=== PATIENT | male | born 1955 | race Caucasian/White ===

== ENCOUNTER 2017-10-05 13:23 | Inpatient (IN) | payer BC ==
[~2017-10-05] VITALS: Ht 193 cm; Wt 102.5 kg
[~2017-10-05 13:23] MED LIST: KEFLEX500 MG PO
[2017-10-05 14:41] LABS: APPEARANCE SL.HAZY ((CLEAR)); BILIRUBIN NEGATIVE; BLOOD NEGATIVE; COLOR AMBER ((YELLOW)); GLUCOSE (STRIP) NEGATIVE; KETONES 20; LEUKOCYTES TRACE; NITRITE NEGATIVE; PROTEIN (STRIP) 30; SPECIFIC GRAVITY 1.021 (1.000-1.030)
[2017-10-05 14:48] LABS: HEMATOCRIT 42.2 % (38.0-50.0); HEMOGLOBIN 14.9 G/DL (12.5-16.6); MCH 31.8 PG (29.0-34.0); MCHC 35.3 G/DL (30.0-36.0); MCV 90.2 FL (86-99); PLATELET COUNT 414 K/uL (156-360); RBC DIS.WIDTH-CV 11.5 % (11.8-14.6); RBC DIS.WIDTH-SD 37.9 % (39-53); RED BLOOD COUNT 4.68 M/uL (4.00-5.50); WHITE BLOOD COUNT 16.8 K/uL (4.1-10.2)
[2017-10-05 14:55] LABS: BACTERIA RARE /HPF; EPITHELIAL CELLS NONE SEEN /HPF; HYALINE CASTS 20-30 /LPF; MUCUS NONE SEEN /LPF; RED BLOOD CELLS 0-5 /HPF (0-5); UCUL ADDED? NO; WHITE BLOOD CELLS 0-5 /HPF (0-5)
[2017-10-05 14:57] LABS: ALBUMIN 4.2 g/dL (3.2-4.8)
[2017-10-05 14:58] LABS: CHLORIDE 82 mEq/L (99-109); POTASSIUM 3.9 mEq/L (3.7-5.4); SODIUM 131 mEq/L (136-147)
[2017-10-05 15:00] LABS: GLUCOSE 128 mg/dL (70-99); TOTAL PROTEIN 7.8 g/dL (6.4-8.3)
[2017-10-05 15:02] LABS: TOTAL BILIRUBIN 0.8 mg/dL (0.0-1.0)
[2017-10-05 15:03] LABS: ALKALINE PHOSPHATASE 80 IU/L (3-129)
[2017-10-05 15:04] LABS: CREATININE 1.7 mg/dL (0.6-1.3); GFR ESTIMATE (CALCULATED) 43 mL/min/ (58.99-99999)
[2017-10-05 15:05] LABS: AST (GOT) 27 IU/L (2-34); UREA NITROGEN (BUN) 38 mg/dL (9-23)
[2017-10-05 15:07] LABS: ALT (GPT) 29 IU/L (3-49)
[2017-10-05] MEDS ORDERED: MULTI-VITAMIN1 EAC4 PO (18:23)
[2017-10-05] MEDS ORDERED: VITAMIN C1000 MG PO (18:24)
[2017-10-05] MEDS ORDERED: MAGNESIUM OXID500 MG PO (18:25)
[2017-10-05] MEDS ORDERED: POTASSIUM-9999 MG PO (18:25)
[2017-10-05] MEDS ORDERED: VITAMIN D-3 401 EACH PO (18:25)
[2017-10-05] MEDS ORDERED: FISH OIL 1,0001 EAC7 PO (18:26)
[2017-10-05] MEDS ORDERED: ALEVE220 MG PO (18:27)
[2017-10-05 22:55] LABS: CARBON DIOXIDE (BICARBONATE) 38.4 MEQ/L (20-31)
[2017-10-05 23:17] LABS: C-REACTIVE PROTEIN 196.5 MG/L (0-10); MAGNESIUM 2.4 mg/dl (1.3-2.7); PHOSPHORUS 3.6 mg/dL (2.5-4.9)
[2017-10-06 01:12] VITALS: BP 146/83
[2017-10-06 08:04] VITALS: BP 135/76
[2017-10-06 08:04] LABS: BASOPHIL (%) 0.3 % (0-1); EOSINOPHIL (%) 1.9 % (0-5); EOSINOPHIL COUNT 0.2 K/uL (0-0.3); HEMATOCRIT 36.6 % (38.0-50.0); IMMATURE GRANULOCYTE (%) 0.7 % (0.0-0.7); LYMPHOCYTE (%) 11.4 % (15-42); MCH 30.9 PG (29.0-34.0); MCHC 34.2 G/DL (30.0-36.0); MCV 90.6 FL (86-99); MONOCYTE (%) 6.2 % (3-12); MONOCYTE COUNT 0.6 K/uL (0-0.8); NEUTROPHIL (%) 79.5 % (45-76); PLATELET COUNT 368 K/uL (156-360); RBC DIS.WIDTH-CV 11.7 % (11.8-14.6); RBC DIS.WIDTH-SD 39.3 % (39-53); RED BLOOD COUNT 4.04 M/uL (4.00-5.50); WHITE BLOOD COUNT 8.9 K/uL (4.1-10.2)
[2017-10-06 08:15] LABS: PROLACTIN 23.2 NG/ML
[2017-10-06 08:29] LABS: HEMOGLOBIN 12.5 G/DL (12.5-16.6)
[2017-10-06 08:37] LABS: ALBUMIN 3.2 G/DL (3.2-4.8); ALKALINE PHOSPHATASE 62 IU/L (3-129); ALT (GPT) 17 IU/L (3-49); AST (GOT) 17 IU/L (2-34); CHLORIDE 86 MEQ/L (99-109); CREATININE 1.4 MG/DL (0.6-1.3); GFR ESTIMATE (CALCULATED) 54 mL/min/ (58.99-99999); MAGNESIUM 2.4 mg/dl (1.3-2.7); PHOSPHORUS 3.5 mg/dL (2.5-4.9); POTASSIUM 3.5 MEQ/L (3.7-5.4); SODIUM 134 MEQ/L (136-147); TOTAL BILIRUBIN 0.6 MG/DL (0.0-1.0); TOTAL PROTEIN 5.7 G/DL (6.4-8.3); UREA NITROGEN (BUN) 36 mg/dL (9-23)
[2017-10-06 08:43] LABS: GLUCOSE 88 mg/dL (70-99)
[2017-10-06 12:19] VITALS: BP 147/68
[2017-10-06 16:04] VITALS: BP 143/73
[2017-10-06 19:57] VITALS: BP 135/71
[2017-10-07] VITALS (7 sets, daily range): BP systolic 115–161; BP diastolic 67–79
[2017-10-07 05:31] LABS: HEMATOCRIT 34.3 % (38.0-50.0); HEMOGLOBIN 11.8 G/DL (12.5-16.6); MCH 32.1 PG (29.0-34.0); MCHC 34.4 G/DL (30.0-36.0); MCV 93.2 FL (86-99); PLATELET COUNT 311 K/uL (156-360); RBC DIS.WIDTH-CV 11.8 % (11.8-14.6); RBC DIS.WIDTH-SD 40.2 % (39-53); RED BLOOD COUNT 3.68 M/uL (4.00-5.50); WHITE BLOOD COUNT 9.3 K/uL (4.1-10.2)
[2017-10-07 05:55] LABS: CHLORIDE 90 MEQ/L (99-109); CREATININE 1.2 MG/DL (0.6-1.3); GFR ESTIMATE (CALCULATED) > 59 mL/min/ (58.99-99999); GLUCOSE 76 mg/dL (70-99); MAGNESIUM 2.3 mg/dl (1.3-2.7); PHOSPHORUS 2.9 mg/dL (2.5-4.9); POTASSIUM 2.9 MEQ/L (3.7-5.4); SODIUM 137 MEQ/L (136-147); UREA NITROGEN (BUN) 19 mg/dL (9-23)
[2017-10-08 03:50] VITALS: BP 119/73
[2017-10-08 06:12] LABS: HEMATOCRIT 34.2 % (38.0-50.0); HEMOGLOBIN 11.7 G/DL (12.5-16.6); MCH 32.4 PG (29.0-34.0); MCHC 34.2 G/DL (30.0-36.0); MCV 94.7 FL (86-99); PLATELET COUNT 334 K/uL (156-360); RBC DIS.WIDTH-CV 11.9 % (11.8-14.6); RBC DIS.WIDTH-SD 41.1 % (39-53); RED BLOOD COUNT 3.61 M/uL (4.00-5.50); WHITE BLOOD COUNT 9.2 K/uL (4.1-10.2)
[2017-10-08 06:42] LABS: CHLORIDE 96 MEQ/L (99-109); GFR ESTIMATE (CALCULATED) > 59 mL/min/ (58.99-99999); GLUCOSE 69 mg/dL (70-99); SODIUM 141 MEQ/L (136-147); UREA NITROGEN (BUN) 13 mg/dL (9-23)
[2017-10-08 06:43] LABS: POTASSIUM 3.6 MEQ/L (3.7-5.4)
[2017-10-08 08:30] VITALS: BP 113/82
[2017-10-08 11:19] VITALS: BP 126/74
[2017-10-08 15:30] VITALS: BP 117/80
[2017-10-08 20:31] VITALS: BP 140/82
[2017-10-09 00:11] VITALS: BP 125/78
[2017-10-09 05:16] VITALS: BP 123/71
[2017-10-09 07:38] LABS: CHLORIDE 101 MEQ/L (99-109); GFR ESTIMATE (CALCULATED) > 59 mL/min/ (58.99-99999); GLUCOSE 73 mg/dL (70-99); SODIUM 142 MEQ/L (136-147); UREA NITROGEN (BUN) 12 mg/dL (9-23)
[2017-10-09 07:41] LABS: POTASSIUM 4.4 MEQ/L (3.7-5.4)
[2017-10-09 11:24] VITALS: BP 124/71
[2017-10-09 17:33] VITALS: BP 136/85
[2017-10-09 20:05] VITALS: BP 139/81
[2017-10-10 00:27] VITALS: BP 148/81
[2017-10-10 03:10] VITALS: BP 120/72
[2017-10-10 07:55] LABS: CHLORIDE 103 MEQ/L (99-109); CREATININE 0.9 MG/DL (0.6-1.3); GFR ESTIMATE (CALCULATED) > 59 mL/min/ (58.99-99999); POTASSIUM 4.1 MEQ/L (3.7-5.4); SODIUM 142 MEQ/L (136-147); UREA NITROGEN (BUN) 9 mg/dL (9-23)
[2017-10-10 07:56] LABS: GLUCOSE 119 mg/dL (70-99)
[2017-10-10 08:30] VITALS: BP 116/63
[2017-10-10 12:49] VITALS: BP 125/72
[2017-10-10 16:30] VITALS: BP 130/72
[2017-10-10 20:44] VITALS: BP 128/81
[2017-10-11 00:14] VITALS: BP 153/86
[2017-10-11 05:17] VITALS: BP 120/72
[2017-10-11 09:16] VITALS: BP 119/70
[2017-10-11 16:04] VITALS: BP 125/80
[2017-10-12 00:20] VITALS: BP 123/83
[2017-10-12 07:47] LABS: BASOPHIL (%) 0.6 % (0-1); BASOPHIL COUNT 0.1 K/uL (0-0.1); EOSINOPHIL (%) 2.2 % (0-5); EOSINOPHIL COUNT 0.2 K/uL (0-0.3); HEMATOCRIT 36.1 % (38.0-50.0); HEMOGLOBIN 11.9 G/DL (12.5-16.6); IMMATURE GRANULOCYTE (%) 0.4 % (0.0-0.7); LYMPHOCYTE (%) 12.8 % (15-42); LYMPHOCYTE COUNT 1.1 K/uL (1.0-2.8); MCH 31.9 PG (29.0-34.0); MCV 96.8 FL (86-99); MONOCYTE (%) 8.7 % (3-12); MONOCYTE COUNT 0.7 K/uL (0-0.8); NEUTROPHIL (%) 75.3 % (45-76); NEUTROPHIL COUNT 6.2 K/uL (1.8-6.4); PLATELET COUNT 269 K/uL (156-360); RBC DIS.WIDTH-CV 12.2 % (11.8-14.6); RBC DIS.WIDTH-SD 43.2 % (39-53); RED BLOOD COUNT 3.73 M/uL (4.00-5.50); WHITE BLOOD COUNT 8.2 K/uL (4.1-10.2)
[2017-10-12 08:15] LABS: ALBUMIN 2.7 G/DL (3.2-4.8); ALKALINE PHOSPHATASE 43 IU/L (3-129); ALKALINE PHOSPHATASE 44 IU/L (3-129); ALT (GPT) 24 IU/L (3-49); AST (GOT) 36 IU/L (2-34); CHLORIDE 103 MEQ/L (99-109); CREATININE 1.2 MG/DL (0.6-1.3); DIRECT BILIRUBIN 0.1 mg/dL (0.0-0.3); GFR ESTIMATE (CALCULATED) > 59 mL/min/ (58.99-99999); GLUCOSE 121 mg/dL (70-99); MAGNESIUM 1.8 mg/dl (1.3-2.7); POTASSIUM 4.4 MEQ/L (3.7-5.4); PREALBUMIN 15.1 mg/dL (10-40); SODIUM 143 MEQ/L (136-147); TOTAL BILIRUBIN 0.4 MG/DL (0.0-1.0); TOTAL PROTEIN 4.9 G/DL (6.4-8.3); TRIGLYCERIDES 55 MG/DL (Normal: <150); UREA NITROGEN (BUN) 5 mg/dL (9-23)
[2017-10-12 08:17] LABS: AST (GOT) 35 IU/L (2-34); TOTAL BILIRUBIN 0.4 MG/DL (0.0-1.0)
[2017-10-12 08:32] VITALS: BP 128/73
[2017-10-12 11:40] VITALS: BP 112/66
[2017-10-12 20:18] VITALS: BP 112/73
[2017-10-13] VITALS (7 sets, daily range): BP systolic 118–133; BP diastolic 73–83
[2017-10-13 06:17] LABS: CHLORIDE 105 MEQ/L (99-109); POTASSIUM 4.1 MEQ/L (3.7-5.4); SODIUM 143 MEQ/L (136-147)
[2017-10-13 06:23] LABS: CREATININE 1.2 MG/DL (0.6-1.3); GFR ESTIMATE (CALCULATED) > 59 mL/min/ (58.99-99999); GLUCOSE 108 mg/dL (70-99); UREA NITROGEN (BUN) 7 mg/dL (9-23)
[2017-10-14 05:39] LABS: CHLORIDE 108 MEQ/L (99-109); GFR ESTIMATE (CALCULATED) > 59 mL/min/ (58.99-99999); GLUCOSE 105 mg/dL (70-99); MAGNESIUM 2.2 mg/dl (1.3-2.7); PHOSPHORUS 3.5 mg/dL (2.5-4.9); POTASSIUM 4.5 MEQ/L (3.7-5.4); SODIUM 143 MEQ/L (136-147); UREA NITROGEN (BUN) 14 mg/dL (9-23)
[2017-10-14 08:25] VITALS: BP 118/82
[2017-10-14 15:23] VITALS: BP 141/83
[2017-10-14 19:51] VITALS: BP 144/89
[2017-10-15 00:16] VITALS: BP 141/85
[2017-10-15 04:02] VITALS: BP 124/60
[2017-10-15 06:23] LABS: CHLORIDE 108 MEQ/L (99-109); CREATININE 0.9 MG/DL (0.6-1.3); GFR ESTIMATE (CALCULATED) > 59 mL/min/ (58.99-99999); GLUCOSE 107 mg/dL (70-99); MAGNESIUM 2.2 mg/dl (1.3-2.7); PHOSPHORUS 4.3 mg/dL (2.5-4.9); POTASSIUM 4.6 MEQ/L (3.7-5.4); SODIUM 144 MEQ/L (136-147); UREA NITROGEN (BUN) 16 mg/dL (9-23)
[2017-10-15 07:54] VITALS: BP 122/75
[2017-10-15 11:29] VITALS: BP 118/75
[2017-10-15 13:46] VITALS: BP 149/85
[2017-10-15 20:45] VITALS: BP 162/84
[2017-10-16 00:09] VITALS: BP 142/78
[2017-10-16 03:28] VITALS: BP 123/64
[2017-10-16 05:33] LABS: HEMATOCRIT 33.6 % (38.0-50.0); HEMOGLOBIN 10.8 G/DL (12.5-16.6); MCH 30.9 PG (29.0-34.0); MCHC 32.1 G/DL (30.0-36.0); MCV 96.3 FL (86-99); PLATELET COUNT 275 K/uL (156-360); RBC DIS.WIDTH-CV 12.2 % (11.8-14.6); RBC DIS.WIDTH-SD 42.4 % (39-53); RED BLOOD COUNT 3.49 M/uL (4.00-5.50); WHITE BLOOD COUNT 9.4 K/uL (4.1-10.2)
[2017-10-16 06:55] LABS: CHLORIDE 108 MEQ/L (99-109); CREATININE 0.9 MG/DL (0.6-1.3); GFR ESTIMATE (CALCULATED) > 59 mL/min/ (58.99-99999); GLUCOSE 132 mg/dL (70-99); MAGNESIUM 1.9 mg/dl (1.3-2.7); PHOSPHORUS 3.6 mg/dL (2.5-4.9); POTASSIUM 5.2 MEQ/L (3.7-5.4); UREA NITROGEN (BUN) 18 mg/dL (9-23)
[2017-10-16 06:58] LABS: SODIUM 136 MEQ/L (136-147)
[2017-10-16 08:00] VITALS: BP 133/73
[2017-10-16 11:06] VITALS: BP 124/68
[2017-10-16 15:29] VITALS: BP 134/75
[2017-10-16 21:01] VITALS: BP 135/72
[2017-10-17 00:21] VITALS: BP 143/82
[2017-10-17 06:33] VITALS: BP 133/76
[2017-10-17 06:49] LABS: CHLORIDE 109 MEQ/L (99-109); GFR ESTIMATE (CALCULATED) > 59 mL/min/ (58.99-99999); GLUCOSE 104 mg/dL (70-99); MAGNESIUM 1.9 mg/dl (1.3-2.7); PHOSPHORUS 3.2 mg/dL (2.5-4.9); SODIUM 140 MEQ/L (136-147); UREA NITROGEN (BUN) 21 mg/dL (9-23)
[2017-10-17 06:51] LABS: POTASSIUM 4.1 MEQ/L (3.7-5.4)
[2017-10-17 08:00] VITALS: BP 136/80
[2017-10-17 11:37] VITALS: BP 138/88
[2017-10-17 16:02] VITALS: BP 140/85
[2017-10-17 20:03] VITALS: BP 164/94
[2017-10-18 00:12] VITALS: BP 129/76
[2017-10-18 05:52] LABS: BASOPHIL (%) 0.7 % (0-1); BASOPHIL COUNT 0.1 K/uL (0-0.1); EOSINOPHIL (%) 3.7 % (0-5); EOSINOPHIL COUNT 0.3 K/uL (0-0.3); HEMATOCRIT 32.3 % (38.0-50.0); HEMOGLOBIN 10.5 G/DL (12.5-16.6); IMMATURE GRANULOCYTE (%) 0.6 % (0.0-0.7); LYMPHOCYTE (%) 9.6 % (15-42); LYMPHOCYTE COUNT 0.7 K/uL (1.0-2.8); MCH 31.7 PG (29.0-34.0); MCHC 32.5 G/DL (30.0-36.0); MCV 97.6 FL (86-99); MONOCYTE (%) 8.3 % (3-12); MONOCYTE COUNT 0.6 K/uL (0-0.8); NEUTROPHIL (%) 77.1 % (45-76); NEUTROPHIL COUNT 5.5 K/uL (1.8-6.4); PLATELET COUNT 282 K/uL (156-360); RBC DIS.WIDTH-CV 12.6 % (11.8-14.6); RBC DIS.WIDTH-SD 44.6 % (39-53); RED BLOOD COUNT 3.31 M/uL (4.00-5.50); WHITE BLOOD COUNT 7.1 K/uL (4.1-10.2)
[2017-10-18 06:12] VITALS: BP 161/78
[2017-10-18 07:15] LABS: ALBUMIN 2.6 G/DL (3.2-4.8); ALKALINE PHOSPHATASE 59 IU/L (3-129); ALT (GPT) 21 IU/L (3-49); AST (GOT) 32 IU/L (2-34); CHLORIDE 108 MEQ/L (99-109); CREATININE 0.9 MG/DL (0.6-1.3); DIRECT BILIRUBIN 0.1 mg/dL (0.0-0.3); GFR ESTIMATE (CALCULATED) > 59 mL/min/ (58.99-99999); GLUCOSE 96 mg/dL (70-99); PHOSPHORUS 4.3 mg/dL (2.5-4.9); POTASSIUM 4.9 MEQ/L (3.7-5.4); PREALBUMIN 11.6 mg/dL (10-40); SODIUM 142 MEQ/L (136-147); TOTAL BILIRUBIN 0.4 MG/DL (0.0-1.0); TRIGLYCERIDES 77 MG/DL (Normal: <150); UREA NITROGEN (BUN) 20 mg/dL (9-23)
[2017-10-18 07:25] VITALS: BP 160/86
[2017-10-18 11:20] VITALS: BP 139/85
[2017-10-18 15:58] VITALS: BP 165/87
[2017-10-18 23:39] VITALS: BP 135/84
[2017-10-19 03:49] VITALS: BP 139/75; BP 139/755
[2017-10-19 05:10] LABS: HEMATOCRIT 29.8 % (38.0-50.0); HEMOGLOBIN 9.8 G/DL (12.5-16.6); MCH 31.8 PG (29.0-34.0); MCHC 32.9 G/DL (30.0-36.0); MCV 96.8 FL (86-99); PLATELET COUNT 299 K/uL (156-360); RBC DIS.WIDTH-CV 12.7 % (11.8-14.6); RBC DIS.WIDTH-SD 44.3 % (39-53); RED BLOOD COUNT 3.08 M/uL (4.00-5.50); WHITE BLOOD COUNT 5.8 K/uL (4.1-10.2)
[2017-10-19 06:10] LABS: CHLORIDE 106 MEQ/L (99-109); GFR ESTIMATE (CALCULATED) > 59 mL/min/ (58.99-99999); GLUCOSE 110 mg/dL (70-99); SODIUM 142 MEQ/L (136-147); UREA NITROGEN (BUN) 23 mg/dL (9-23)
[2017-10-19 06:17] LABS: POTASSIUM 3.6 MEQ/L (3.7-5.4)
[2017-10-19 07:53] VITALS: BP 134/71
[2017-10-19 10:47] VITALS: BP 153/83
[2017-10-19 13:00] LABS: 24 HR VOLUME 700 MLS
[2017-10-19 15:48] VITALS: BP 155/89
[2017-10-19 20:42] VITALS: BP 132/72
[2017-10-19 23:28] VITALS: BP 127/77
[2017-10-20 03:44] VITALS: BP 130/80
[2017-10-20 07:34] LABS: CHLORIDE 111 MEQ/L (99-109); CREATININE 0.9 MG/DL (0.6-1.3); GFR ESTIMATE (CALCULATED) > 59 mL/min/ (58.99-99999); GLUCOSE 102 mg/dL (70-99); MAGNESIUM 2.1 mg/dl (1.3-2.7); PHOSPHORUS 3.6 mg/dL (2.5-4.9); SODIUM 145 MEQ/L (136-147); UREA NITROGEN (BUN) 23 mg/dL (9-23)
[2017-10-20 07:40] VITALS: BP 128/74
[2017-10-20 11:39] VITALS: BP 137/74
[2017-10-20 15:09] VITALS: BP 142/76
[2017-10-20 19:28] VITALS: BP 161/81
[2017-10-20 23:08] VITALS: BP 123/64
[2017-10-21 03:44] VITALS: BP 131/63
[2017-10-21 06:25] LABS: CHLORIDE 115 MEQ/L (99-109); CREATININE 0.9 MG/DL (0.6-1.3); GFR ESTIMATE (CALCULATED) > 59 mL/min/ (58.99-99999); GLUCOSE 104 mg/dL (70-99); PHOSPHORUS 3.8 mg/dL (2.5-4.9); POTASSIUM 3.7 MEQ/L (3.7-5.4); SODIUM 145 MEQ/L (136-147); UREA NITROGEN (BUN) 22 mg/dL (9-23)
[2017-10-21 07:49] VITALS: BP 115/68
[2017-10-21 11:43] VITALS: BP 144/81
[2017-10-21 16:01] VITALS: BP 156/83
[2017-10-21 20:27] VITALS: BP 147/78
[2017-10-22 00:27] VITALS: BP 147/76
[2017-10-22 04:18] VITALS: BP 151/79
[2017-10-22 05:59] LABS: CHLORIDE 109 MEQ/L (99-109); CREATININE 0.7 MG/DL (0.6-1.3); GFR ESTIMATE (CALCULATED) > 59 mL/min/ (58.99-99999); GLUCOSE 98 mg/dL (70-99); MAGNESIUM 1.8 mg/dl (1.3-2.7); PHOSPHORUS 3.8 mg/dL (2.5-4.9); POTASSIUM 3.9 MEQ/L (3.7-5.4); SODIUM 141 MEQ/L (136-147); UREA NITROGEN (BUN) 20 mg/dL (9-23)
[2017-10-22 08:06] VITALS: BP 146/75
[2017-10-22 16:06] VITALS: BP 138/70
[2017-10-22 23:56] VITALS: BP 143/80
[2017-10-23 06:40] LABS: HEMATOCRIT 29.8 % (38.0-50.0); HEMOGLOBIN 9.7 G/DL (12.5-16.6); MCH 31.3 PG (29.0-34.0); MCHC 32.6 G/DL (30.0-36.0); MCV 96.1 FL (86-99); PLATELET COUNT 326 K/uL (156-360); RBC DIS.WIDTH-CV 12.3 % (11.8-14.6); RBC DIS.WIDTH-SD 42.7 % (39-53); WHITE BLOOD COUNT 4.6 K/uL (4.1-10.2)
[2017-10-23 07:05] LABS: CHLORIDE 106 MEQ/L (99-109); CREATININE 0.7 MG/DL (0.6-1.3); GFR ESTIMATE (CALCULATED) > 59 mL/min/ (58.99-99999); GLUCOSE 100 mg/dL (70-99); MAGNESIUM 1.9 mg/dl (1.3-2.7); POTASSIUM 4.4 MEQ/L (3.7-5.4); SODIUM 141 MEQ/L (136-147); UREA NITROGEN (BUN) 17 mg/dL (9-23)
[2017-10-23 08:38] VITALS: BP 141/82
[2017-10-23 17:15] VITALS: BP 142/82
[2017-10-24 00:04] VITALS: BP 113/61
[2017-10-24 06:47] LABS: CHLORIDE 101 MEQ/L (99-109); CREATININE 0.9 MG/DL (0.6-1.3); GFR ESTIMATE (CALCULATED) > 59 mL/min/ (58.99-99999); GLUCOSE 98 mg/dL (70-99); MAGNESIUM 1.9 mg/dl (1.3-2.7); PHOSPHORUS 3.8 mg/dL (2.5-4.9); POTASSIUM 4.7 MEQ/L (3.7-5.4); SODIUM 137 MEQ/L (136-147); UREA NITROGEN (BUN) 20 mg/dL (9-23)
[2017-10-24 08:09] VITALS: BP 135/82
[2017-10-24 11:13] VITALS: BP 123/68
[2017-10-24] MEDS ORDERED: NORCO 5/3251 TABLET PO (14:24)
== END 2017-10-24 16:12 | disposition home or self-care (01) | DRG 330 ==
LOC: EME 13:23 → 3EAST 23:13 → EDOF 23:13 → ENRESERV 23:18 → 3EAST 10-06 01:03
PROVIDERS: Hospitalist; Physician Assistant; Physician Assistant Medical; Thoracic Surgery (Cardiothoracic Vascular Surgery)
PROC: 02HV33Z Insertion of Infusion Device into Superior Vena Cava, Percutaneous Approach (ICD-10-PCS; 2017-10-05)
PROC: 0D9670Z Drainage of Stomach with Drainage Device, Via Natural or Artificial Opening (ICD-10-PCS; 2017-10-05)
PROC: 3E0336Z Introduction of Nutritional Substance into Peripheral Vein, Percutaneous Approach (ICD-10-PCS; principal; 2017-10-12)
PROC: 0DB80ZZ Excision of Small Intestine, Open Approach (ICD-10-PCS; 2017-10-17)
DX: K56.609 Unspecified intestinal obstruction, unspecified as to partial versus complete obstruction (principal); K66.0 Peritoneal adhesions (postprocedural) (postinfection); K46.9 Unspecified abdominal hernia without obstruction or gangrene; G47.33 Obstructive sleep apnea (adult) (pediatric); N17.9 Acute kidney failure, unspecified; D72.829 Elevated white blood cell count, unspecified; E87.8 Other disorders of electrolyte and fluid balance, not elsewhere classified; E87.6 Hypokalemia; R63.4 Abnormal weight loss; I80.9 Phlebitis and thrombophlebitis of unspecified site; E44.1 Mild protein-calorie malnutrition; E86.0 Dehydration; J90 Pleural effusion, not elsewhere classified; E87.4 Mixed disorder of acid-base balance; Z82.49 Family history of ischemic heart disease and other diseases of the circulatory system; Z68.24 Body mass index [BMI] 24.0-24.9, adult; Z87.891 Personal history of nicotine dependence
CPT/HCPCS: 71045; 74019; 74176; 74177; 80048; 80053; 80076; 81003; 81050; 82248; 82803; 82948; 83605; 83735; 84100; 84134; 84146; 84478; 84540; 84630 90; 85025; 85027; 86140; 87040; 88307; 93005; 99281; 99285; J0131; J0330; J1100; J1170; J1200; J1335; J1644; J1815; J1885; J1940; J2060; J2405; J2765; J3010; J3480; J7030; J7120; S0028; S0030

== ENCOUNTER 2018-04-10 15:40 | Inpatient (IN) | payer BC ==
[~2018-04-10] VITALS: Ht 193 cm; Wt 87.2 kg
[~2018-04-10 15:40] MED LIST changes: +ALEVE220 MG PO; +FISH OIL 1,0001 EAC7 PO; +MAGNESIUM OXID500 MG PO; +MULTI-VITAMIN1 EAC4 PO; +NORCO 5/3251 TABLET PO; +POTASSIUM-9999 MG PO; +VITAMIN C1000 MG PO; +VITAMIN D-3 401 EACH PO
[2018-04-10 16:12] LABS: HEMATOCRIT 41.7 % (38.0-50.0); HEMOGLOBIN 14.2 G/DL (12.5-16.6); MCH 31.7 PG (29.0-34.0); MCHC 34.1 G/DL (30.0-36.0); MCV 93.1 FL (86-99); PLATELET COUNT 238 K/uL (156-360); RBC DIS.WIDTH-CV 12.7 % (11.8-14.6); RBC DIS.WIDTH-SD 43.3 % (39-53); RED BLOOD COUNT 4.48 M/uL (4.00-5.50); WHITE BLOOD COUNT 6.7 K/uL (4.1-10.2)
[2018-04-10 16:41] LABS: ALBUMIN 4.2 G/DL (3.2-4.8); CHLORIDE 103 MEQ/L (99-109); POTASSIUM 4.5 MEQ/L (3.7-5.4); SODIUM 141 MEQ/L (136-147); TOTAL BILIRUBIN 0.7 MG/DL (0.0-1.0)
[2018-04-10 16:47] LABS: ALKALINE PHOSPHATASE 100 IU/L (3-129); ALT (GPT) 14 IU/L (3-49); AST (GOT) 22 IU/L (2-34); CREATININE 1.2 MG/DL (0.6-1.3); GFR ESTIMATE (CALCULATED) > 59 mL/min/ (58.99-99999); GLUCOSE 106 mg/dL (70-99); UREA NITROGEN (BUN) 16 mg/dL (9-23)
[2018-04-10 17:12] LABS: LIPASE 27 U/L (1.0-51.0)
[2018-04-10 17:44] LABS: APPEARANCE SL.HAZY ((CLEAR)); BILIRUBIN NEGATIVE; BLOOD NEGATIVE; GLUCOSE (STRIP) NEGATIVE; KETONES NEGATIVE; LEUKOCYTES NEGATIVE; NITRITE NEGATIVE; PROTEIN (STRIP) NEGATIVE; SPECIFIC GRAVITY 1.013 (1.000-1.030)
[2018-04-10 17:53] LABS: COLOR YELLOW ((YELLOW))
[2018-04-10 17:56] LABS: BACTERIA NONE SEEN /HPF; EPITHELIAL CELLS NONE SEEN /HPF; MUCUS NONE SEEN /LPF; RED BLOOD CELLS 0-5 /HPF (0-5); UCUL ADDED? NO; WHITE BLOOD CELLS 0-5 /HPF (0-5)
[2018-04-10] MEDS ORDERED: ADVIL,NUPRIN,M200 MG PO (20:17)
[2018-04-10] MEDS ORDERED: B-COMPLEX-VITA1 EACH PO (20:18)
[2018-04-10] MEDS ORDERED: MULTIVITAMIN1 EAC2 PO (20:18)
[2018-04-10] MEDS ORDERED: POTASSIUM-9999 MG PO (20:19)
[2018-04-10] MEDS ORDERED: ASCORBIC ACID100 MG PO (20:19)
[2018-04-10 21:20] VITALS: BP 133/76
[2018-04-10 22:15] VITALS: BP 133/76
[2018-04-11 00:34] VITALS: BP 125/74
[2018-04-11 04:11] VITALS: BP 124/75
[2018-04-11 06:24] LABS: HEMATOCRIT 38.7 % (38.0-50.0); MCH 31.2 PG (29.0-34.0); MCHC 33.6 G/DL (30.0-36.0); MCV 92.8 FL (86-99); PLATELET COUNT 230 K/uL (156-360); RBC DIS.WIDTH-CV 12.6 % (11.8-14.6); RBC DIS.WIDTH-SD 43.1 % (39-53); RED BLOOD COUNT 4.17 M/uL (4.00-5.50); WHITE BLOOD COUNT 6.5 K/uL (4.1-10.2)
[2018-04-11 06:46] LABS: CHLORIDE 107 MEQ/L (99-109); CREATININE 1.1 MG/DL (0.6-1.3); GFR ESTIMATE (CALCULATED) > 59 mL/min/ (58.99-99999); GLUCOSE 126 mg/dL (70-99); POTASSIUM 4.4 MEQ/L (3.7-5.4); SODIUM 143 MEQ/L (136-147); UREA NITROGEN (BUN) 12 mg/dL (9-23)
[2018-04-11 08:32] VITALS: BP 121/79
[2018-04-11 11:20] VITALS: BP 124/72
[2018-04-11 16:35] VITALS: BP 129/72
[2018-04-11 23:10] VITALS: BP 122/63
[2018-04-12 03:00] VITALS: BP 108/64
[2018-04-12 06:08] LABS: HEMATOCRIT 34.8 % (38.0-50.0); HEMOGLOBIN 11.6 G/DL (12.5-16.6); MCH 31.4 PG (29.0-34.0); MCHC 33.3 G/DL (30.0-36.0); MCV 94.1 FL (86-99); PLATELET COUNT 204 K/uL (156-360); RBC DIS.WIDTH-CV 12.8 % (11.8-14.6); RBC DIS.WIDTH-SD 43.9 % (39-53); WHITE BLOOD COUNT 4.8 K/uL (4.1-10.2)
[2018-04-12 06:30] LABS: CHLORIDE 108 MEQ/L (99-109); GFR ESTIMATE (CALCULATED) > 59 mL/min/ (58.99-99999); GLUCOSE 105 mg/dL (70-99); POTASSIUM 4.4 MEQ/L (3.7-5.4); SODIUM 142 MEQ/L (136-147); UREA NITROGEN (BUN) 10 mg/dL (9-23)
[2018-04-12 07:41] VITALS: BP 108/66
[2018-04-12 11:17] VITALS: BP 99/62
[2018-04-12 15:45] VITALS: BP 102/63
[2018-04-12 23:29] VITALS: BP 120/67
[2018-04-13 03:46] VITALS: BP 126/76
[2018-04-13 07:59] VITALS: BP 123/74
[2018-04-13 11:44] VITALS: BP 124/79
[2018-04-13 16:12] VITALS: BP 116/66
[2018-04-13 20:09] VITALS: BP 133/83
[2018-04-14 00:32] VITALS: BP 113/58
[2018-04-14 08:04] VITALS: BP 117/79
[2018-04-14 15:32] VITALS: BP 122/72
[2018-04-14] MEDS ORDERED: METAMUCIL PACK3.4 GM PO (18:22)
[2018-04-14] MEDS ORDERED: DOCUSATE SODIU100 MG PO (18:22)
== END 2018-04-14 19:55 | disposition home or self-care (01) | DRG 390 ==
LOC: EME 15:40 → 3EAST 19:56 → EDOF 19:56 → ENRESERV 19:57 → 3EAST 21:01
PROVIDERS: Surgery; Thoracic Surgery (Cardiothoracic Vascular Surgery)
DX: K56.609 Unspecified intestinal obstruction, unspecified as to partial versus complete obstruction (principal); Z90.49 Acquired absence of other specified parts of digestive tract
CPT/HCPCS: 74018; 74019; 74177; 80048; 80053; 81003; 83690; 85027; 99281; 99285; J2270; J2405; J3480; J7040; J7120